=== PATIENT | female | born 1955 | race African-American/Black ===

== ENCOUNTER 2017-03-14 23:25 | Emergency (ER) | payer OTHER, MEDICAID ==
[~2017-03-14] VITALS: Ht 175.3 cm; Wt 72.1 kg
[~2017-03-14 23:25] MED LIST: FLUT1DSK2 IH; LAC PO; PRED20TA5 PO; SPIMDI INH; [UNRECOGNIZED DRUG - CODE] PO; [UNRECOGNIZED DRUG - CODE] PO
[2017-03-14 23:37] VITALS: BP 126/78
--- NOTE | 2017-03-14 23:42 | NUR ---
PT TAKEN TO OF
--- NOTE | 2017-03-14 23:45 | NUR ---
62 Y/O F W/C/O LACERATION TO R 3RD DIGIT X YESTERDAY. DENIES ANY FEVER, OR CHILLS. PT STATES ONLY FEELS PAIN WHEN PRESSING ON IT. NO DRAINAGE PRESENT AT THE MOMENT. ER MD EVALUATING PT.
--- NOTE | 2017-03-14 23:49 | NUR ---
Dr. Miller evaluating patient
[2017-03-14] MEDS ORDERED: BACITRACIN OINT 500 UNITS/GM PKT TP ONE (23:55)
--- NOTE | 2017-03-15 00:02 | NUR ---
PT REFUSED TDAP SHOT. MARILU CATES MADE AWARE.
[2017-03-15 00:16] VITALS: BP 126/78
--- NOTE | 2017-03-15 00:16 | NUR ---
Patient discharged with v/s stable. Written and verbal after care instructions given and explained. Patient alert, oriented and verbalized understanding of instructions. Ambulatory with steady gait. All questions addressed prior to discharge. ID band removed. Patient advised to follow up with PMD TOMORROW OR RETURN TO ER IF CONDITION WORSENS. Rx of BACITRACIN given. Patient educated on indication of medication including possible reaction and side effects. Opportunity to ask questions provided and answered.
== END 2017-03-15 00:16 | disposition home or self-care (01) ==
LOC: MED 23:25
DX: S61.212A Laceration without foreign body of right middle finger without damage to nail, initial encounter (principal); I10 Essential (primary) hypertension; J44.9 Chronic obstructive pulmonary disease, unspecified; Z88.0 Allergy status to penicillin; Z88.2 Allergy status to sulfonamides; Z88.6 Allergy status to analgesic agent; W25.XXXA Contact with sharp glass, initial encounter; Y93.89 Activity, other specified; Y92.89 Other specified places as the place of occurrence of the external cause; Y99.8 Other external cause status
CPT/HCPCS: 99283

== ENCOUNTER 2017-11-11 07:24 | Emergency (ER) | payer OTHER, MEDICAID ==
[~2017-11-11] VITALS: Ht 180.3 cm; Wt 68.9 kg
[~2017-11-11 07:24] MED LIST changes: +GUAI-791 PO; -[UNRECOGNIZED DRUG - CODE] PO
[2017-11-11] MEDS ORDERED: ALBUTEROL SULFATE/IPRATROPIU 3 ML SOL IH ONE (07:25)
[2017-11-11 07:28] VITALS: BP 141/84
--- NOTE | 2017-11-11 07:40 | NUR ---
Patient being evaluated by physician at bedside.
[2017-11-11] MEDS ORDERED: cefTRIAXone 1,000 MG in LIDOCAINE 1% ***ER ONLY *** 2.1 ML IM ONE (07:50)
[2017-11-11] MEDS ORDERED: DEXAMETHASONE 10 MG/ML VIAL IM ONE (07:50)
--- NOTE | 2017-11-11 08:00 | NUR ---
62/F BIB FAMILY FOR C/O OS pain swelling increased tears, rhinorrhea x last night. Denies injury. STS awoke feeling dizzy and "out of it." HX COPD. PT SOUDNS CONGESTED. ER MD AWARE. RT AT BEDSIDE.
[2017-11-11] MEDS ORDERED: OSELTAMIVIR PHOSPHATE 75 MG CAP PO SCH (09:00)
--- NOTE | 2017-11-11 09:20 | NUR ---
PT SLEEPING AND RESTING COMFORTABLY. AWAITING DISCHARGE.
--- NOTE | 2017-11-11 10:05 | NUR ---
Patient discharged with v/s stable. Written and verbal after care instructions given and explained. Patient alert, oriented and verbalized understanding of instructions. Ambulatory with steady gait. All questions addressed prior to discharge. ID band removed. Patient advised to follow up with PMD. Rx of PREDNISONE, CODEINE, LEVAQUIN given. Patient educated on indication of medication including possible reaction and side effects. Opportunity to ask questions provided and answered.
[2017-11-11 10:16] VITALS: BP 144/80
== END 2017-11-11 10:05 | disposition home or self-care (01) ==
LOC: MED 07:24
DX: J44.1 Chronic obstructive pulmonary disease with (acute) exacerbation (principal); H10.9 Unspecified conjunctivitis; J32.9 Chronic sinusitis, unspecified; I10 Essential (primary) hypertension; Z88.0 Allergy status to penicillin; Z88.5 Allergy status to narcotic agent; Z88.2 Allergy status to sulfonamides
CPT/HCPCS: 36415; 71046; 87804; 94640; 96372; 99285; J0696; J1100; J2001; J7620

== ENCOUNTER 2017-11-14 18:49 | Emergency (ER) | payer OTHER, MEDICAID ==
[~2017-11-14] VITALS: Ht 175.3 cm; Wt 67.6 kg
[2017-11-14 19:38] VITALS: BP 150/90
[2017-11-14 19:41] VITALS: BP 150/90
--- NOTE | 2017-11-14 19:41 | NUR ---
TO LOBBY, TYREL BOYLE, A/W BED, BALBIR NOTED
--- NOTE | 2017-11-14 21:44 | NUR ---
PATIENT LEFT WITHOUT BEING SEEN BY DR. RUBI. NO FURTHER CARE PROVIDED FOR PATIENT.
== END 2017-11-14 21:44 | disposition left against medical advice (07) ==
LOC: MED 18:49
DX: H57.12 Ocular pain, left eye (principal); Z53.21 Procedure and treatment not carried out due to patient leaving prior to being seen by health care provider

== ENCOUNTER 2017-11-15 11:13 | Emergency (ER) | payer OTHER, MEDICAID ==
[~2017-11-15] VITALS: Ht 175.3 cm; Wt 67.6 kg
[2017-11-15 11:41] VITALS: BP 151/84
--- NOTE | 2017-11-15 11:45 | NUR ---
PT SENT TO LOBBY, STABLE CONDITION. RESP EVEN AND UNLABORED, INFORMED TO LET STAFF LKNOW IF CONDITION CHNAGES.
--- NOTE | 2017-11-15 12:50 | NUR ---
PATIENT PRESENTS TO ED WITH persistant left eye pain swelling . PT STATES . DENIES N/V/D; SKIN IS PINK/WARM/DRY; AAOX4 WITH EVEN AND STEADY GAIT; LUNGS CLEAR BL; HR EVEN AND REGULAR; PT DENIES ANY FEVER, CP, SOB, OR COUGH AT THIS TIME; PATIENT STATES PAIN OF 10/10 AT THIS TIME; VSS; PATIENT POSITIONED FOR COMFORT; HOB ELEVATED; BEDRAILS UP X2; BED DOWN. ER MD MADE AWARE OF PT STATUS.
[2017-11-15] MEDS ORDERED: TETRACAINE HCL/PF 0.5% OPTH 4 ML BTL OP ONE (14:15)
[2017-11-15] MEDS ORDERED: FLUORESCEIN OPTH STRIP 1 MG ONE (14:15)
--- NOTE | 2017-11-15 14:21 | NUR ---
pt admits instant relief from pain after tetracaine eye drops---smiling and thankful
--- NOTE | 2017-11-15 14:30 | NUR ---
os cleaned and examined by
[2017-11-15] MEDS ORDERED: TIMOLOL OP 0.5% 5 ML BTL OP ONE (14:45)
--- NOTE | 2017-11-15 14:50 | NUR ---
provided chicken salad sandwich with decaf coffee as requested by pt
[2017-11-15] MEDS ORDERED: NACL 0.9% IV SCH (16:00)
[2017-11-15] MEDS ORDERED: ACETAZOLAMIDE IV SCH (16:00)
--- NOTE | 2017-11-15 16:55 | NUR ---
Patient discharged with v/s stable. Written and verbal after care instructions given and explained. Patient alert, oriented and verbalized understanding of instructions. Ambulatory with steady gait. All questions addressed prior to discharge. ID band removed. Patient advised to follow up with PMD. Rx of diamox/timolol given. Patient educated on indication of medication including possible reaction and side effects. Opportunity to ask questions provided and answered.
[2017-11-15 16:56] VITALS: BP 160/88
--- NOTE | 2017-11-15 16:57 | NUR ---
culture collected from drainage os
== END 2017-11-15 16:55 | disposition home or self-care (01) ==
LOC: MED 11:13
DX: H10.9 Unspecified conjunctivitis (principal); J44.9 Chronic obstructive pulmonary disease, unspecified; F17.210 Nicotine dependence, cigarettes, uncomplicated; Z88.0 Allergy status to penicillin; Z88.5 Allergy status to narcotic agent; Z88.2 Allergy status to sulfonamides
CPT/HCPCS: 87070; 96365; 99284; J1120

== ENCOUNTER 2018-09-02 14:22 | Emergency (ER) | payer OTHER, MEDICAID ==
[~2018-09-02] VITALS: Ht 175.3 cm; Wt 68.0 kg
[2018-09-02 14:38] VITALS: BP 130/76
[2018-09-02] MEDS ORDERED: DOCUSATE 100 MG/10 ML UDC GT SCH (16:00)
[2018-09-02] MEDS ORDERED: HYDROGEN PEROXIDE 3% 240 ML BTL TP ONE (16:00)
[2018-09-02 16:57] VITALS: BP 138/89
== END 2018-09-02 16:57 | disposition home or self-care (01) ==
LOC: MED 14:22
DX: H61.22 Impacted cerumen, left ear (principal); J44.9 Chronic obstructive pulmonary disease, unspecified; I10 Essential (primary) hypertension; H54.62 Unqualified visual loss, left eye, normal vision right eye; Z88.0 Allergy status to penicillin; Z88.5 Allergy status to narcotic agent; Z88.2 Allergy status to sulfonamides; Z79.899 Other long term (current) drug therapy
CPT/HCPCS: 81002; 99283

== ENCOUNTER 2018-12-09 08:21 | Emergency (ER) | payer OTHER, MEDICAID ==
[~2018-12-09] VITALS: Ht 175.3 cm; Wt 65.8 kg
--- NOTE | 2018-12-09 08:21 | NUR ---
PT AMBULATES TO BED 8
[2018-12-09 08:24] VITALS: BP 154/92
[2018-12-09] MEDS ORDERED: ALBUTEROL SULFATE/IPRATROPIU 3 ML SOL IH ONE (08:30)
[2018-12-09] MEDS ORDERED: DEXAMETHASONE 10 MG/ML VIAL IM ONE (08:30)
[2018-12-09] MEDS ORDERED: LEVOFLOXACIN 500 MG TAB PO ONE (08:30)
--- NOTE | 2018-12-09 08:36 | NUR ---
63/f c/o persistant cough, chest/nasal congestion, fatigue, sob >2 wks mild accessory muscle use noted--hold full speech. hx--copd rx---albuterol / advair. PATIENT STATES PAIN OF 0/10 AT THIS TIME. PATIENT POSITIONED FOR COMFORT; HOB ELEVATED; BEDRAILS UP X2; BED DOWN. ER MD MADE AWARE OF PT STATUS.
--- NOTE | 2018-12-09 08:40 | NUR ---
RT AT BEDSIDE FOR BREATHING TREATMENT.
--- NOTE | 2018-12-09 09:00 | NUR ---
XRAY AT BEDSIDE
--- NOTE | 2018-12-09 09:16 | NUR ---
Patient being evaluated by DR HULL at bedside.
[2018-12-09 09:46] VITALS: BP 157/83
--- NOTE | 2018-12-09 09:46 | NUR ---
Patient discharged with v/s stable. Written and verbal after care instructions given and explained. Patient alert, oriented and verbalized understanding of instructions. Carried with steady gait. All questions addressed prior to discharge. ID band removed. Patient advised to follow up with PMD. Rx of ALBUTEROL, LEVAQUIN, REGLAN, PREDNISONE & PROMETHAZINE given. Patient educated on indication of medication including possible reaction and side effects. Opportunity to ask questions provided and answered.
== END 2018-12-09 09:46 | disposition home or self-care (01) ==
LOC: MED 08:21
DX: J44.1 Chronic obstructive pulmonary disease with (acute) exacerbation (principal); I10 Essential (primary) hypertension; K21.9 Gastro-esophageal reflux disease without esophagitis; J02.9 Acute pharyngitis, unspecified; F17.210 Nicotine dependence, cigarettes, uncomplicated; Z79.899 Other long term (current) drug therapy; Z88.0 Allergy status to penicillin; Z88.5 Allergy status to narcotic agent
CPT/HCPCS: 71045; 94640; 96372; 99283; J1100; J7620; Q0092

== ENCOUNTER 2019-01-18 18:03 | Emergency (ER) | payer OTHER, MEDICAID ==
[~2019-01-18] VITALS: Ht 175.3 cm; Wt 70.3 kg
[2019-01-18 18:07] VITALS: BP 137/84
--- NOTE | 2019-01-18 18:23 | NUR ---
Note undone in EDM - 01/18/19 at 1841 by [email or web address] 63 Y F BIB SELF C/O SOB AND FEVER THAT STARTED YESTERDAY. PT HAS LABORDED BREATHING. LUNG SOUNDS CONGESTED. PT COUGHING SINCE FOR SEVERAL WEEKS. GREEN PRODUCTION. DENIES PAIN, REPORTS CHILLS. NO FEVER AT THIS TIME. VSS. AA0X4. BED IS DOWN, LOCKED, BED RAIL X 1, ERMD NOTIFIED OF PATIENT CONDITION. HX: COPD RX: ALBUTEROL
--- NOTE | 2019-01-18 18:23 | NUR ---
63 Y F BIB SELF C/O SOB AND FEVER THAT STARTED YESTERDAY. PT HAS LABORDED BREATHING. LUNG SOUNDS CONGESTED. PT COUGHING SINCE FOR SEVERAL WEEKS. GREEN PRODUCTION. DENIES PAIN, REPORTS CHILLS. FEVER OF 100.2. VSS. AA0X4. BED IS DOWN, LOCKED, BED RAIL X 1, ERMD NOTIFIED OF PATIENT CONDITION. HX: COPD RX: ALBUTEROL
[2019-01-18] MEDS ORDERED: IPRATROPIUM 0.02% 0.5 MG/2.5 ML NEBU INH ONE (18:30)
[2019-01-18] MEDS ORDERED: ALBUTEROL 0.083% 2.5 MG/3 ML NEBU INH ONE (18:30)
--- NOTE | 2019-01-18 18:41 | NUR ---
RT AT BEDSIDE FOR BREATHING TREATMENT.
--- NOTE | 2019-01-18 18:42 | NUR ---
LAB AT BEDSIDE.
[2019-01-18] MEDS ORDERED: ACETAMINOPHEN 325 MG TAB PO ONE (18:55)
[2019-01-18] MEDS ORDERED: NACL 0.9% 1,000 ML IV ONE (18:55)
[2019-01-18 18:57] LABS: BASOPHILS # (AUTO) 0.1 K/uL (0.00-0.22); BASOPHILS % (AUTO) 0.6 % (0.0-2.0); EOSINOPHILS % (AUTO) 0.1 % (0.0-4.0); HEMOGLOBIN 13.9 g/dL (12.0-16.0); LYMPHOCYTES # (AUTO) 0.9 K/uL (2.5-16.5); LYMPHOCYTES % (AUTO) 8.5 % (20.5-51.1); MEAN CORPUSCULAR HEMOGLOBIN 32 pg (27-31); MEAN CORPUSCULAR HGB CONC 33 g/dL (33-37); MEAN CORPUSCULAR VOLUME 97.6 fL (80-94); MONOCYTES # (AUTO) 0.7 K/uL (0.8-1.0); MONOCYTES % (AUTO) 7.2 % (1.7-9.3); NEUTROPHILS # (AUTO) 8.5 K/uL (1.8-7.7); NEUTROPHILS % (AUTO) 83.6 % (42.2-75.2); PLATELET COUNT (AUTO) 168 K/uL (140-450); RED CELL DISTRIBUTION WIDTH 12.1 % (11.6-13.7); WHITE BLOOD COUNT (AUTO) 10.2 K/uL (4.8-10.8)
--- NOTE | 2019-01-18 19:13 | NUR ---
Pt report given to MAURICE/VENKAT. Transfer of care at this time.
--- NOTE | 2019-01-18 19:13 | NUR ---
BEDSIDE REPORT RECEIVED FROM VENKAT NYE.
[2019-01-18 19:16] LABS: ANION GAP 16.3 (8-16); CARBON DIOXIDE 26.5 mmol/L (21-32); CREATININE 0.9 mg/dL (0.6-1.3); POTASSIUM 4.8 mmol/L (3.5-5.1)
[2019-01-18] MEDS ORDERED: methylPREDNISolone SS 80 MG in WATER STERILE 1 ML IV ONE (19:25)
--- NOTE | 2019-01-18 19:28 | NUR ---
PT AMBULATED TO RESTROOM. GAIT STEADY.
[2019-01-18 19:30] VITALS: BP 152/82
[2019-01-18 20:28] LABS: ALBUMIN 3.5 g/dL (3.4-5.0); TOTAL BILIRUBIN 1.6 mg/dL (0.0-1.0)
--- NOTE | 2019-01-18 20:39 | NUR ---
Dr. Miller evaluating patient at bedside.
--- NOTE | 2019-01-18 20:41 | NUR ---
AT BEDSIDE ASSESSING PT.
[2019-01-18] MEDS ORDERED: LEVOFLOXACIN 750 MG TAB PO ONE ×2 (20:45→21:05)
[2019-01-18] MEDS ORDERED: LEVOFLOXACIN 750 MG/D5W PREMIX 150 ML IV ONE ×3 (20:45→20:55)
--- NOTE | 2019-01-18 21:04 | NUR ---
IV INFILTRATED. MADE AWARE. LEVAQUIN IVPG D/C. NEW ORDERS FOLLOWED.
--- NOTE | 2019-01-18 21:21 | NUR ---
Patient does not wish to proceed with medical care recommended by MD Scott. Patient given information related to possible complications, up to and including , which could occur as a result of leaving hospital at this time. Patient verbalizes understanding of risks involved leaving against medical advice. Patient has signed AMA form.
--- NOTE | 2019-01-22 06:47 | NUR ---
Late entry. Confirmed with RN that 1000 ml 0.9NS IV infused and ended at 2004.
== END 2019-01-18 21:21 | disposition left against medical advice (07) ==
LOC: MED 18:03
DX: J18.9 Pneumonia, unspecified organism (principal); J44.1 Chronic obstructive pulmonary disease with (acute) exacerbation; K21.9 Gastro-esophageal reflux disease without esophagitis; I10 Essential (primary) hypertension; F17.200 Nicotine dependence, unspecified, uncomplicated; Z88.0 Allergy status to penicillin; Z88.5 Allergy status to narcotic agent; Z79.899 Other long term (current) drug therapy
CPT/HCPCS: 36415; 71045; 80053; 84484; 85025; 87804; 93005; 94640; 94760; 96374; 96375; 99284; J1956; J2920; J7030; J7613; J7644

== ENCOUNTER 2019-02-27 10:47 | Emergency (ER) | payer OTHER, MEDICAID ==
[~2019-02-27] VITALS: Ht 175.3 cm; Wt 69.1 kg
[2019-02-27 10:54] VITALS: BP 131/80
--- NOTE | 2019-02-27 11:30 | NUR ---
PT AMBULATED TO ER BED 06
--- NOTE | 2019-02-27 11:35 | NUR ---
64 Y FEMALE BIB SELF C/O COUGH X 2 MONTHS. PT STATES SHE HAS COLD SYMTPOMS, RUNNY NOSE, SNEEZING, NON-PRODUCTIVE COUGH. DENIES PAIN. PTS VOICE IS STRAINED. VSS AT THIS TIME. AA0X4. BED IS DOWN, LOCKED, BED RAIL X 1, ERMD NOTIFIED. MED HX: COPD
--- NOTE | 2019-02-27 11:55 | NUR ---
Note undone in EDM - 02/27/19 at 1202 by [email or web address] 64 Y FEMALE BIB SELF C/O COUGH X 2 MONTHS. PT STATES SHE HAS COLD SYMTPOMS, RUNNY NOSE, SNEEZING, NON-PRODUCTIVE COUGH. DENIES PAIN. PTS VOICE IS STRAINED. VSS AT THIS TIME. AA0X4. BED IS DOWN, LOCKED, BED RAIL X 1, ERMD NOTIFIED. MED HX: COPD
[2019-02-27] MEDS ORDERED: IPRATROPIUM 0.02% 0.5 MG/2.5 ML NEBU INH ONE (12:40)
[2019-02-27] MEDS ORDERED: ALBUTEROL 0.083% 2.5 MG/3 ML NEBU INH ONE (12:40)
[2019-02-27] MEDS ORDERED: predniSONE 20 MG TAB PO ONE (12:40)
--- NOTE | 2019-02-27 12:53 | NUR ---
XRAY AT BEDSIDE
[2019-02-27 14:00] VITALS: BP 129/82
--- NOTE | 2019-02-27 14:00 | NUR ---
Patient discharged with v/s stable. Written and verbal after care instructions given and explained. Patient alert, oriented and verbalized understanding of instructions. Ambulatory with steady gait. All questions addressed prior to discharge. ID band removed. Patient advised to follow up with PMD. Rx of LEVAQUIN, PREDNISONE, PROMETHASINE HYDROCHLORIDE given. Patient educated on indication of medication including possible reaction and side effects. Opportunity to ask questions provided and answered.
== END 2019-02-27 14:00 | disposition home or self-care (01) ==
LOC: MED 10:47
DX: J44.1 Chronic obstructive pulmonary disease with (acute) exacerbation (principal); I10 Essential (primary) hypertension; Z88.0 Allergy status to penicillin; Z88.5 Allergy status to narcotic agent; Z79.899 Other long term (current) drug therapy
CPT/HCPCS: 71045; 94640; 99283; J7512; J7613; J7644; Q0092

== ENCOUNTER 2021-04-03 09:38 | Emergency (ER) | payer OTHER, MEDICAID ==
[~2021-04-03] VITALS: Ht 175.3 cm; Wt 70.8 kg
[2021-04-03 09:39] VITALS: BP 145/73
--- NOTE | 2021-04-03 09:47 | NUR ---
PT AMBULATED TO BED 05.
--- NOTE | 2021-04-03 09:53 | NUR ---
66 Y/O FEMALE C/O LEFT-SIDED CHEST PAIN DURING REST, WORSENING OVER 1 WEEK. DESCRIBES 8/10, DULL, NON-RADIATING. PT ALSO REPORTS INTERMITTENT PRODUCTIVE COUGH SINCE 2008 FROM COPD. PMH: COPD- 2008 MEDS: ALBUTEROL ALLERGIES: PENICILLIN, CODEINE, SULFA
--- NOTE | 2021-04-03 10:22 | NUR ---
XRAY AT BEDSIDE
[2021-04-03 10:30] LABS: BASOPHILS # (AUTO) 0.1 K/uL (0.00-0.22); BASOPHILS % (AUTO) 1.1 % (0.0-2.0); EOSINOPHILS # (AUTO) 0.1 K/uL (0-0.4); EOSINOPHILS % (AUTO) 1.7 % (0.0-4.0); HEMATOCRIT 40.1 % (36-48); HEMOGLOBIN 13.2 g/dL (12.0-16.0); LYMPHOCYTES # (AUTO) 1.3 K/uL (2.5-16.5); LYMPHOCYTES % (AUTO) 23.9 % (20.5-51.1); MEAN CORPUSCULAR HEMOGLOBIN 33 pg (27-31); MEAN CORPUSCULAR HGB CONC 33 g/dL (33-37); MEAN CORPUSCULAR VOLUME 99.4 fL (80-94); MONOCYTES # (AUTO) 0.5 K/uL (0.8-1.0); MONOCYTES % (AUTO) 8.4 % (1.7-9.3); NEUTROPHILS # (AUTO) 3.6 K/uL (1.8-7.7); NEUTROPHILS % (AUTO) 64.9 % (42.2-75.2); PLATELET COUNT (AUTO) 210 K/uL (140-450); RED BLOOD CELL COUNT(AUTO) 4.04 MIL/uL (4.20-5.40); RED CELL DISTRIBUTION WIDTH 12.4 % (11.6-13.7); WHITE BLOOD COUNT (AUTO) 5.6 K/uL (4.8-10.8)
[2021-04-03 10:40] LABS: ANION GAP 10.6 (8-16); CARBON DIOXIDE 31.4 mmol/L (21-32); CREATININE 0.9 mg/dL (0.6-1.3)
[2021-04-03 10:45] LABS: ALBUMIN 3.3 g/dL (3.4-5.0)
[2021-04-03] MEDS ORDERED: ASPIRIN 81 MG TAB.CHEW PO ONE (10:50)
[2021-04-03] MEDS ORDERED: ASPI-1205 PO (11:00)
--- NOTE | 2021-04-03 11:08 | NUR ---
PT REFUSED ADMISSION TO HOSPITAL. Patient does not wish to proceed with medical care recommended by DR BOWENS. Patient given information related to possible complications, up to and including , which could occur as a result of leaving hospital at this time. Patient verbalizes understanding of risks involved leaving against medical advice. Patient has signed AMA form.
[2021-04-03 11:13] VITALS: BP 145/73
--- NOTE | 2021-04-03 11:15 | NUR ---
Patient discharged with v/s stable. Written and verbal after care instructions given and explained. Patient alert, oriented and verbalized understanding of instructions. Ambulatory with steady gait. All questions addressed prior to discharge. ID band removed. Patient advised to follow up with PMD. Rx of ASPIRIN given. Patient educated on indication of medication including possible reaction and side effects. Opportunity to ask questions provided and answered.
== END 2021-04-03 09:47 | disposition left against medical advice (07) ==
LOC: MED 09:38
DX: I21.4 Non-ST elevation (NSTEMI) myocardial infarction (principal); R07.89 Other chest pain; J44.9 Chronic obstructive pulmonary disease, unspecified; I10 Essential (primary) hypertension; Z79.899 Other long term (current) drug therapy; Z79.82 Long term (current) use of aspirin; Z88.0 Allergy status to penicillin; Z88.5 Allergy status to narcotic agent
CPT/HCPCS: 36415; 71045; 80053; 84484; 85025; 93005; 99285

== ENCOUNTER 2021-06-13 14:23 | Emergency (ER) | payer OTHER, MEDICAID ==
[~2021-06-13] VITALS: Ht 175.3 cm; Wt 64.4 kg
[~2021-06-13 14:23] MED LIST changes: +ASPI-1205 PO
[2021-06-13 14:28] VITALS: BP 115/59
--- NOTE | 2021-06-13 15:00 | NUR ---
PT TAKEN TO XR VIA W/C.
--- NOTE | 2021-06-13 15:16 | NUR ---
PT TAKEN TO LOBBY VIA W/C.
--- NOTE | 2021-06-13 15:36 | NUR ---
NO NURSING INTERVENTIONS DONE, NO COMPLETE ASSESSMENT NEEDED.
[2021-06-13 15:55] LABS: BASOPHILS # (AUTO) 0.1 K/uL (0.00-0.22); BASOPHILS % (AUTO) 0.9 % (0.0-2.0); EOSINOPHILS % (AUTO) 0.4 % (0.0-4.0); HEMATOCRIT 40.3 % (36-48); HEMOGLOBIN 13.3 g/dL (12.0-16.0); LYMPHOCYTES # (AUTO) 1.5 K/uL (2.5-16.5); LYMPHOCYTES % (AUTO) 16.1 % (20.5-51.1); MEAN CORPUSCULAR HEMOGLOBIN 32 pg (27-31); MEAN CORPUSCULAR HGB CONC 33 g/dL (33-37); MEAN CORPUSCULAR VOLUME 95.7 fL (80-94); MONOCYTES # (AUTO) 0.8 K/uL (0.8-1.0); NEUTROPHILS # (AUTO) 7.1 K/uL (1.8-7.7); NEUTROPHILS % (AUTO) 74.6 % (42.2-75.2); RED BLOOD CELL COUNT(AUTO) 4.21 MIL/uL (4.20-5.40); RED CELL DISTRIBUTION WIDTH 12.5 % (11.6-13.7); WHITE BLOOD COUNT (AUTO) 9.6 K/uL (4.8-10.8)
[2021-06-13 16:07] LABS: ALBUMIN 3.2 g/dL (3.4-5.0); ANION GAP 11.5 (8-16); CARBON DIOXIDE 30.2 mmol/L (21-32); POTASSIUM 3.7 mmol/L (3.5-5.1); TOTAL BILIRUBIN 1.1 mg/dL (0.0-1.0)
[2021-06-13 16:10] LABS: PLATELET COUNT (AUTO) 178 K/uL (140-450)
[2021-06-13] MEDS ORDERED: LEVO750T51 PO (17:25)
[2021-06-13] MEDS ORDERED: PRED20TA5 PO (17:25)
[2021-06-13 18:03] VITALS: BP 118/63
--- NOTE | 2021-06-13 18:05 | NUR ---
Patient discharged with v/s stable. Written and verbal after care instructions given COPD EXACERBATION and explained. Patient alert, oriented and verbalized understanding of instructions. Ambulatory with steady gait. All questions addressed prior to discharge. ID band removed. Patient advised to follow up with PMD. Rx of PRDENISONE 40MG PO DAILY, AND LEVOFLAXACIN 750MG PO DAILY PRN INFECTION given. Patient educated on indication of medication including possible reaction and side effects. Opportunity to ask questions provided and answered.
== END 2021-06-13 18:05 | disposition home or self-care (01) ==
LOC: MED 14:23
DX: J44.1 Chronic obstructive pulmonary disease with (acute) exacerbation (principal); Z20.822 Contact with and (suspected) exposure to COVID-19
CPT/HCPCS: 36415; 71045; 80053; 83690; 83880; 84484; 85025; 93005; 99285

== ENCOUNTER 2022-01-28 17:25 | Emergency (ER) | payer OTHER, MEDICAID ==
[~2022-01-28] VITALS: Ht 175.3 cm; Wt 67.6 kg
[~2022-01-28 17:25] MED LIST changes: +LEVO750T51 PO
[2022-01-28 17:29] VITALS: BP 115/65
[2022-01-28] MEDS ORDERED: LIDOCAINE MPF 1% 10 MG/ML VIAL INJ ONE (18:00)
[2022-01-28] MEDS ORDERED: BACITRACIN OINT 500 UNITS/GM PKT TP ONE ×2 (18:00→19:20)
--- NOTE | 2022-01-28 18:10 | NUR ---
TINO Rodriguez at bedside evaluating patient.
--- NOTE | 2022-01-28 18:15 | NUR ---
66 y/o female BIB self due to abcess under right armpit. Area is red and some swelling to area is noted. Patient only has pain to the area when she is squeeezing it. Medical History: [place] STAGE 3 ALLERGIES: PENICIILINS, CODEINE, SULFA
[2022-01-28] MEDS ORDERED: CLIN300C2 PO (19:10)
--- NOTE | 2022-01-28 19:17 | NUR ---
Pt report given to VENKAT Panchal. Transfer of care at this time.
[2022-01-28] MEDS ORDERED: CLINDAMYCIN 150 MG CAP PO ONE (19:30)
[2022-01-28 19:42] VITALS: BP 115/65
--- NOTE | 2022-01-28 19:42 | NUR ---
Patient discharged with v/s stable. Written and verbal after care instructions given and explained. Patient alert, oriented and verbalized understanding of instructions. Ambulatory with steady gait. All questions addressed prior to discharge. ID band removed. Patient advised to follow up with PMD. Rx of Clindamycin given. Patient educated on indication of medication including possible reaction and side effects. Opportunity to ask questions provided and answered.
== END 2022-01-28 19:42 | disposition home or self-care (01) ==
LOC: MED 17:25
DX: L02.411 Cutaneous abscess of right axilla (principal); J44.9 Chronic obstructive pulmonary disease, unspecified; I10 Essential (primary) hypertension; Z88.0 Allergy status to penicillin; Z88.5 Allergy status to narcotic agent; Z79.899 Other long term (current) drug therapy; Z79.82 Long term (current) use of aspirin
CPT/HCPCS: 10060; 99283; J2001

== ENCOUNTER 2022-02-02 02:00 | Emergency (ER) | payer OTHER, MEDICAID ==
[~2022-02-02] VITALS: Ht 175.3 cm; Wt 68.0 kg
[~2022-02-02 02:00] MED LIST changes: +CLIN300C2 PO
[2022-02-02 02:10] VITALS: BP 148/92
--- NOTE | 2022-02-02 02:10 | NUR ---
TO BED AMBULATORY
--- NOTE | 2022-02-02 02:19 | NUR ---
ER MD AT BEDSIDE EXAMINING PT
--- NOTE | 2022-02-02 02:26 | NUR ---
67 Y/O FEMALE BIB SELF. PT IS RETURNING FOR WOUND RECHECK AFTER AN I&D PERFORMED X2 DAYS AGO. DENIES N/V/D; SKIN IS PINK/WARM/DRY; AAOX4 WITH EVEN AND STEADY GAIT; LUNGS CLEAR BL; HR EVEN AND REGULAR; PT DENIES ANY FEVER, CP, SOB, OR COUGH AT THIS TIME; PATIENT STATES PAIN OF 0/10 AT THIS TIME; VSS; PATIENT POSITIONED FOR COMFORT; HOB ELEVATED; BEDRAILS UP X2; BED DOWN. ER MD MADE AWARE OF PT STATUS.
[2022-02-02 02:32] VITALS: BP 148/92
--- NOTE | 2022-02-02 02:32 | NUR ---
Patient discharged with v/s stable. Written and verbal after care instructions given and explained. Patient verbalized understanding. Pt advised to follow up with primary care provider. Ambulatory with steady gait. All questions addressed prior to discharge. Advised to follow up with PMD. VSS, A/OX4, UNLABORED BREATHING, AMBULATORY, AND CALM DEMEANOR.
== END 2022-02-02 02:32 | disposition home or self-care (01) ==
LOC: MED 02:00
DX: L02.411 Cutaneous abscess of right axilla (principal); J44.9 Chronic obstructive pulmonary disease, unspecified; I10 Essential (primary) hypertension; Z79.899 Other long term (current) drug therapy; Z79.2 Long term (current) use of antibiotics; Z79.82 Long term (current) use of aspirin; Z88.0 Allergy status to penicillin; Z88.5 Allergy status to narcotic agent; Z88.2 Allergy status to sulfonamides
CPT/HCPCS: 99281